=== PATIENT | male | born 1995 | race Caucasian/White ===

== ENCOUNTER → 2017-09-10 11:45 | Outpatient (CLI) | payer OTHER, SELFPAY ==
[2017-09-10 14:26] LABS: Amphetamine Urine VISTA NEGATIVE (<1000 ng/mL); Barbiturate Urine VISTA NEGATIVE (< 200 ng/mL); Benzodiazepine Urine VISTA NEGATIVE (< 200 ng/mL); Cocaine Urine VISTA NEGATIVE (< 300 ng/mL); Ecstacy Urine VISTA NEGATIVE (< 500 ng/mL); Methadone Urine VISTA NEGATIVE (< 300 ng/mL); PCP Urine VISTA NEGATIVE (< 25 ng/mL); THC Urine VISTA POSITIVE (< 50 ng/mL); Vista UDS pH Range 6
== END ==
PROVIDERS: Family Provider Family Medicine; PCP Family Medicine; Visit Provider Family Medicine
DX: F19.10 Other psychoactive substance abuse, uncomplicated (principal)
CPT/HCPCS: 80307

== ENCOUNTER 2017-12-19 01:14 | Emergency (ER) | payer OTHER, SELFPAY ==
--- NOTE | 2017-12-19 01:14 | DT_ITS ---
This patient was seen during an EMR downtime December 15, 2017 - December 22, 2017. This patient may have a combination of paper and electronic documentation or all paper documentation. All documentation is viewable within the e-chart portion of [employer] for each patient visit.
== END 2017-12-19 02:10 | disposition home or self-care (01) ==
PROVIDERS: Emergency Provider Emergency Medicine; Family Provider Family Medicine; PCP Family Medicine
DX: H60.501 Unspecified acute noninfective otitis externa, right ear (principal)
CPT/HCPCS: 99282

== ENCOUNTER → 2018-10-15 16:31 | Outpatient (CLI) | payer BC, SELFPAY ==
[2018-10-15 18:03] LABS: Uric Acid 8.1 mg/dL (3.5-7.2)
== END ==
PROVIDERS: Family Provider Family Medicine; PCP Family Medicine; Referring Provider Family Medicine; Visit Provider Family Medicine
DX: M79.676 Pain in unspecified toe(s) (principal)
CPT/HCPCS: 36415; 84550

== ENCOUNTER 2020-03-20 23:25 | Emergency (ER) | payer BC, SELFPAY ==
[2020-03-20 23:27] VITALS: BP 137/80; PULSE 133; RESP 19; TEMP 39.4; O2SAT 95; BMI 42.1
[2020-03-20 23:32] VITALS: BP 137/80; PULSE 133; RESP 19; TEMP 39.4; O2SAT 95
--- NOTE | 2020-03-21 | RAD_ITS ---
HISTORY: PT WITH FEVER, SORE THROAT, HEADACHE, DIARRHEA, SOB. TESTED NEGATIVE FOR COVID ON FRIDAY. EXAM: XR Chest 1 View: COMPARISON: None FINDINGS: # of images incl. paperwork: 1 Lungs are clear. Heart is not enlarged. No acute osseous pathology perceived. Pulmonary vascularity is distinct. No effusions. RAD/Chest 1 View (Portable) IMPRESSION: Normal. at 0044 Reported and signed by: Kamari Olea MD Electronically Signed: Kamari Olea MD at 0:43 EDT Tel , Service support ,
[2020-03-21] MEDS: Acetaminophen 500 MG Tablet 1000 MG PO (00:10)
[2020-03-21] MEDS: 0.9% Normal Saline 1,000 ML 999 ML IV (00:10)
[2020-03-21 00:16] VITALS: BP 144/98; PULSE 114; RESP 18; TEMP 39.6; O2SAT 95; O2SAT 96
[2020-03-21 00:22] LABS: Absolute Lymphocyte Count 1.67 X10^3/uL (0.83-4.51); Absolute Neutrophil Count 4.8 X10^3/uL (2.0-7.7); Bacteria 0 SEEN /hpf (None Seen); Basophil# 0.06 X10^3/uL; Basophil% 0.8 % (0-1); Eosinophil# 0.37 X10^3/uL; Eosinophils% 4.8 % (0-5); Hematocrit 39.8 % (40-54); Hemoglobin 13.6 g/dL (13.0-16.5); Lymphocyte # 1.67 X10^3/ul (4.0); Lymphocyte % 21.5 % (19-41); Mean Corp Hgb Conc 34.2 g/dL (32-36); Mean Corpuscular Hgb 30.3 pg (27.0-32.0); Mean Corpuscular Volume 88.6 fL (80-94); Mean Platelet Vol. 9.1 fl (6.2-12.0); Monocyte# 0.82 X10^3/uL; Monocyte% 10.6 % (0-10); Mucous, Urine 0 SEEN /hpf (<or=2+); NRBC Flagged by Analyzer 0 % (0-5); Neutrophil # 4.81 X10^3/uL (2.7-7.7); Neutrophil % 61.9 % (47-70); Platelet Count 331 K/mm3 (150-450); RBC Distribution Width CV 11.9 % (11.6-14.6); RBC Distribution Width SD 38.2 fl (35.1-43.9); Red Blood Cells-Urine 0 SEEN /hpf (0-5); Red Blood Count 4.49 M/mm3 (4.6-6.2); Squamous Epithelial Cells - UA 0 SEEN /hpf (0-5); White Blood Cells 0 SEEN /hpf (0-5); White Blood Count 7.8 K/mm3 (4.4-11.0)
[2020-03-21 00:24] LABS: Color, Urine Yellow (Yellow); Glucose, Dipstick Normal (Normal); Ketone-Dipstick Negative (Negative); Leukocyte Esterase-Dipstick Negative /ul (Negative); Nitrite-Dipstick Negative (Negative); Occult Blood-Urine Negative /ul (Negative); Protein-Dipstick Negative (Negative); Specific Gravity, Urine 1.015 (1.002-1.030); Urine Bilirubin Dipstick Negative (Negative); Urine Clarity Clear (Clear); Urine Urobilinogen Normal (Normal)
--- NOTE | 2020-03-21 00:27 | ED.VISSUMM ---
- ER Visit Summary Date of Service: 03/21/20 Chief Complaint: Fever History of Present Illness: The patient is a [address] Steve Key. He reports he has a fever that began 5 days ago. States that he has had sick contacts at work, but he has not had exposure to coronavirus for 2 to 3 weeks. He reports that he does not wear a mask at work. That they have them wear hairnet's as masks as it is so hot and then. States that he is only for COVID. However, he is not tested positive for COVID. Patient reports he had a fever to 103 degrees. He has a sore throat that is actually improving. Is 2 out of 10 in severity. He denies any chest pain, cough, or difficulty breathing. He had diarrhea 2 days ago. He is not since then. No blood in his stools or black tarry stools. He denies abdominal pain, nausea, vomiting. States he does have diffuse myalgias, generalized weakness, and a headache that is 6 out of 10 in severity. He describes this as aching. He does have a history of similar headaches. Physical Examination: Vitals: 103.0, 137/80, 133, 19, 95% room air which is not hypoxic. General: Well-nourished and well-developed. Head: Normocephalic atraumatic. HEENT: Pharyngeal erythema. No tonsillar exudate or enlargement. Neck: Supple, no lymphadenopathy. No JVD. Nontender. Cardiovascular: Tachycardic regular rhythm. No murmurs. Respiratory: No respiratory distress. Clear to auscultation bilaterally. Abdominal: Soft, nontender, nondistended, normal bowel sounds. No guarding, rebound, or peritoneal signs. Back: Nontender. Extremities: Nontender, no edema. Skin: Normal color, no rash. Neurologic: Alert and oriented ?3. Cranial nerves II through XII are intact. Normal strength and sensation. Psych: Normal affect. Test Results: See shows hematocrit of 39.8 monocytes of 11. Chem-7 shows a glucose 115 calcium 8.4. Lactic acid is 1.9. LFTs show an ALT of 67 and AST of 38. Coags are normal. UA is normal. Strep is negative. COVID-19 is pending. Clinical Impression(s) from Imaging Studies Chest X-Ray 03/21/20 00:00 IMPRESSION: Normal. at 0044 Reported and signed by: Kamari Olea MD Electronically Signed: Kamari Olea MD at 0:43 EDT Tel , Service support , Emergency Department Course and Treatment: Patient had an IV placed. He was given a liter normal saline. He is given Tylenol p.o. He is resting comfortably. Patient is ambulatory pulse ox is 95% on room air. Treatment Plan: Had prolonged discussion the patient that I suspect that he does have COVID-19. He will be discharged with symptomatic care. Return to the emerge department for any worsening difficulty breathing or other concerns. Follow-up with his primary care physician in 10 to 14 days if not improving. He does understand that he needs to quarantine. Disposition: To home in improved and stable condition. Impression: 1. Fever. 2. Suspected COVID-19 infection. This note was generated with [employer] dictation software. It may contain incorrect words, spelling, and punctuation that were not noted in review of the chart prior to signing ED Disposition - Plan for ED Patient: Instructions: ED Upper Resp Infec No Abx Tx Referrals: Steve Lugo MD [Primary Care Provider] - 10-14 Days if not better
[2020-03-21 00:29] LABS: International Normalized Ratio 1.1; Prothrombin Time (Protime)PT. 13.8 SECONDS (11.7-14.9)
[2020-03-21 00:30] LABS: Partial Thromboplast Time 24.7 Seconds (24.1-36.2)
[2020-03-21 00:38] LABS: ALB/GLOB Ratio 0.9 RATIO (0.9-2.4); AST(SGOT) 38 U/L (15-37); Alanine Aminotransfer ALT/SGPT 67 U/L (16-61); Albumin, Serum 3.6 g/dL (3.2-5.0); Alkaline Phosphatase 77 U/L (45-117); Anion Gap 8 (5-15); BUN 13 mg/dL (7-18); BUN/Creat Ratio 11.9 RATIO (10-20); Calcium,Total 8.4 mg/dL (8.5-10.1); Chloride 106 mmol/L (98-107); Creatinine, Serum 1.09 mg/dL (0.70-1.30); EST Glomerular Filtration Rate 86 mL/min (>60); Est Glom Filt Rate - Afr Amer 105 mL/min (>60); Estimated Creatinine Clearance 99.36 ml/min; Globulin 4.1 g/dL (2.2-4.2); Glucose 115 mg/dL (74-106); Potassium 4.1 mmol/L (3.5-5.1); Protein, Total 7.7 g/dL (6.4-8.2); Sodium Level 137 mmol/L (136-145)
[2020-03-21 00:42] LABS: Lactic Acid 1.9 mmol/L (0.4-1.9)
[2020-03-21 00:59] VITALS: BP 121/79; PULSE 108; RESP 20; TEMP 38.3; O2SAT 95
[2020-03-21 01:00] VITALS: TEMP 38.3
[2020-03-21 01:12] VITALS: BP 121/79; PULSE 108; RESP 20; TEMP 38.3; O2SAT 95
[2020-03-21 01:27] VITALS: O2SAT 95
[2020-03-21 01:44] VITALS: BP 136/66; PULSE 103; RESP 95; O2SAT 102
--- NOTE | 2020-03-23 04:42 | ED.RN ---
lab called with positive blood culture results. Spoke with Dr. Hutton at this time. Dr. Hutton believes blood cultures where contaminated and wants to see what the other set growths at this time before making a treatment plan for the patient.
--- NOTE | 2020-03-27 13:10 | ED.RN ---
patient called in concern for BC results he seen on mychart. advised patient on results. verbal understanding at this time
== END 2020-03-21 01:52 | disposition home or self-care (01) ==
LOC: ED 03-21 00:20
PROVIDERS: Emergency Provider Emergency Medicine; PCP Family Medicine
DX: R50.9 Fever, unspecified (principal); Z20.828 Contact with and (suspected) exposure to other viral communicable diseases
CPT/HCPCS: 71045; 80053; 81001; 83605; 85025; 85610; 85730; 87040; 87086; 87635; 87880; 96360; 99285; C9803; J7030; A4216; U0003

== ENCOUNTER → 2021-07-12 | Outpatient (CLI) | payer BC, SELFPAY | END | disposition home or self-care (01) | PROVIDERS: PCP Family Medicine; Visit Provider Physician Assistant Medical | DX: Z20.822 Contact with and (suspected) exposure to COVID-19 (principal) | CPT/HCPCS: 87635; U0003; U0005 ==